=== PATIENT | female | born 1945 | race Caucasian/White ===

== ENCOUNTER 2020-09-20 05:25 | Observation (INO) | payer BC, MEDICARE ==
[2020-09-18 11:28] LABS: BASOPHILS # (AUTO) 0.1 (0.0-0.1); BASOPHILS % 1.7 % (0.0-1.0); EOSINOPHILS # (AUTO) 0.2 (0.0-0.4); EOSINOPHILS % 4.6 % (0.0-6.0); HEMATOCRIT 39.5 % (34.2-44.1); HEMOGLOBIN 12.7 g/dL (12.0-16.0); LYMPHOCYTES # (AUTO) 2.1 (1.0-3.2); LYMPHOCYTES % 40.8 % (18.0-39.1); MEAN CORPUSCULAR HGB CONC 32.2 g/dL (31-35); MEAN CORPUSCULAR VOLUME 93.4 fL (81-99); MONOCYTES # (AUTO) 0.5 (0.2-0.8); MONOCYTES % 8.8 % (4.4-11.3); NEUTROPHILS # (AUTO) 2.3 (2.1-6.9); NEUTROPHILS % 43.9 % (38.7-80.0); PLATELET COUNT 260 x10e3/uL (140-360); RED BLOOD COUNT 4.23 x10e6/uL (3.6-5.1); RED CELL DISTRIBUTION WIDTH 12.3 % (11.7-14.4)
[2020-09-18 11:45] LABS: ANION GAP 11.6 mmol/L (8-16); CALCIUM 8.7 mg/dL (8.4-10.2); CREATININE, SERUM 0.77 mg/dL (0.57-1.11); POTASSIUM 4.6 mmol/L (3.5-5.1)
[2020-09-18 12:09] LABS: INR 0.94; PROTHROMBIN TIME 12.8 seconds (11.9-14.5)
[2020-09-18 12:10] LABS: PARTIAL THROMBOPLASTIN TIME 31.3 seconds (23.8-35.5)
[~2020-09-20] VITALS: Ht 162.6 cm; Wt 72.1 kg
[~2020-09-20 05:25] MED LIST: LEVOTHYROXINE50 MCG PO; MONTELUKAST SOD10 MG PO; NEURONTIN400 MG PO; PLAVIX75 MG PO; VERAPAMIL ER120 MG PO
[2020-09-20] MEDS ORDERED: SODIUM CHLORIDE 0.9% 50ML 100 ML ONE (06:20)
[2020-09-20] MEDS ORDERED: LEVOTHYROXINE88 MCG PO (06:37)
[2020-09-20] MEDS ORDERED: THROMBIN FOR SOLN 5,000 UNIT VIAL ONE (07:13)
[2020-09-20] MEDS ORDERED: LIDOCAINE 1% W/EPINEPHRINE 20 ML VIAL ONE (07:13)
[2020-09-20] MEDS ORDERED: Vancomycin IV 1 GM VIAL ONE (07:13)
[2020-09-20] MEDS ORDERED: HYDROCODON-ACE1 EA12 PO (09:10)
[2020-09-20] MEDS ORDERED: HYDROMORPHONE 2MG/ML 2 MG/ML ML IV PRN (09:15)
[2020-09-20] MEDS ORDERED: MAGNESIUM/ALUMINUM/SIMETHICONE 30 ML UDC PO PRN (09:15)
[2020-09-20] MEDS: LACTATED RINGER'S 1,000 ML IV SCH ×2 (09:15→17:35)
[2020-09-20] MEDS ORDERED: PROMETHAZINE HCL (IM) 25 MG/ML VIAL IM PRN (09:15)
[2020-09-20] MEDS ORDERED: CEPACOL SORE THROAT LOZENGES PO PRN (09:15)
[2020-09-20] MEDS ORDERED: ONDANSETRON HCL INJ 2MG/ML 2ML 2 MG/ML VIAL IV PRN (09:15)
[2020-09-20] MEDS ORDERED: ACETAMINOPHEN 325 MG TAB PO PRN (09:15)
[2020-09-20] MEDS ORDERED: MORPHINE SULFATE 5 MG/ML VIAL IM PRN (09:15)
[2020-09-20] MEDS ORDERED: OXYCODONE/ACETAMINOPHEN 5-325 1 EACH TABLET PO PRN (09:15)
[2020-09-20] MEDS ORDERED: CARISOPRODOL 350 MG TAB PO PRN (09:15)
[2020-09-20 10:11] VITALS: BP 137/60
[2020-09-20 10:34] VITALS: BP 137/60
[2020-09-20 11:07] VITALS: BP 128/53
[2020-09-20] MEDS ORDERED: FENTANYL CITRATE/PF 100MCG/2 ML INJ ONE (12:30)
[2020-09-20] MEDS: Cefazolin 1 GM in SODIUM CHLORIDE 0.9% 50ML 50 ML IV SCH ×2 (14:10→22:00)
[2020-09-20] MEDS: GABAPENTIN 300 MG CAP PO SCH ×2 (15:08→21:10)
[2020-09-20 16:00] VITALS: BP 145/60
[2020-09-20] MEDS ORDERED: PHENYLEPHRINE HCL 1% 10 MG/ML VIAL ONE (19:30)
[2020-09-20] MEDS ORDERED: POVIDONE IODINE 0.05% 0.05 % ML PO ONE (19:30)
[2020-09-20] MEDS ORDERED: PROPOFOL IV EMULSION 10 MG/ML 20 ML VIAL ONE (19:30)
[2020-09-20] MEDS ORDERED: ROCURONIUM BROMIDE 10 MG/ML 5ML VIAL IV ONE (19:30)
[2020-09-20] MEDS ORDERED: EPHEDRINE SULFATE INJ 50 MG/ML VIAL ONE (19:30)
[2020-09-20] MEDS ORDERED: SEVOFLURANE INHAL SOLN 250 ML PEN BTL ONE (19:30)
[2020-09-20] MEDS ORDERED: LIDOCAINE HCL 2% LOCAL INJ 5 ML SDV VIAL INJ ONE (19:30)
[2020-09-20] MEDS ORDERED: DEXAMETHASONE SOD PHOS INJ 4 MG/ML VIAL ONE (19:30)
[2020-09-20] MEDS ORDERED: ONDANSETRON HCL INJ 2MG/ML 2ML 2 MG/ML VIAL ONE (19:30)
[2020-09-20 20:00] VITALS: BP 158/66
[2020-09-20] MEDS ORDERED: ZOLPIDEM TARTRATE 5 MG TAB PO PRN (21:00)
[2020-09-21] VITALS: BP 131/67
[2020-09-21 04:00] VITALS: BP 145/79
[2020-09-21] MEDS: Cefazolin 1 GM in SODIUM CHLORIDE 0.9% 50ML 50 ML IV SCH (05:45)
[2020-09-21] MEDS ORDERED: LEVOTHYROXINE SODIUM 88 MCG TAB PO SCH (06:00)
[2020-09-21 07:55] VITALS: BP 127/52
[2020-09-21] MEDS: GABAPENTIN 300 MG CAP PO SCH (09:00)
[2020-09-21] MEDS ORDERED: MONTELUKAST SODIUM 10 MG TAB PO SCH (09:00)
[2020-09-21] MEDS ORDERED: VERAPAMIL HCL 120 MG TABSR PO SCH (09:00)
== END 2020-09-21 10:30 | disposition home or self-care (01) ==
LOC: OR 05:25 → PACU V 09:09 → MED/SURG 10:06
PROVIDERS: ADMIT Neurological Surgery; ATTEND Neurological Surgery
DX: M50.120 Mid-cervical disc disorder, unspecified level (principal); Z20.822 Contact with and (suspected) exposure to COVID-19; Z01.818 Encounter for other preprocedural examination; I69.354 Hemiplegia and hemiparesis following cerebral infarction affecting left non-dominant side; I10 Essential (primary) hypertension; E03.9 Hypothyroidism, unspecified; J45.909 Unspecified asthma, uncomplicated
CPT/HCPCS: 20931; 22551; 22552; 22845; 36415; 71046; 72040; 77003; 80048; 85025; 85610; 85730; 86850; 86900; 88304; 93005; C1713 ×5; C1763; G0378 ×2; J0690 ×2; J1100; J2001; J2370; J2405; J2704; J3010; J3370; U0002

== ENCOUNTER → 2020-10-18 | Outpatient (CLI) | payer MEDICARE ==
[~2020-10-18] MED LIST changes: +HYDROCODON-ACE1 EA12 PO; +LEVOTHYROXINE88 MCG PO
== END ==
LOC: RAD 12:37
PROVIDERS: ATTEND Neurological Surgery
DX: M50.20 Other cervical disc displacement, unspecified cervical region (principal); M43.22 Fusion of spine, cervical region
CPT/HCPCS: 72050